=== PATIENT | male | born 1980 | race Caucasian/White ===

== ENCOUNTER 2017-11-25 11:27 | Emergency (ER) | payer BC, OTHER ==
[~2017-11-25] VITALS: Ht 177.8 cm; Wt 135.0 kg
[2017-11-25 11:30] VITALS: TEMP 36.8; Ht 177.8 cm; Wt 135.0 kg
[2017-11-25] MEDS ORDERED: SODIUM CHLORIDE 0.9% 1000ML 1,000 ML IV STA (11:54)
[2017-11-25] MEDS ORDERED: ACETAMINOPHEN IV 100 ML IV STA (11:54)
--- NOTE | 2017-11-25 12:05 | EMERGENCY ROOM VISIT NOTE ---
History First contact with patient: 11:40 Chief Complaint: FLANK PAIN Stated Complaint: LEFT ABDOMINAL AND GROIN PAIN, BACK PAIN, VOMITING History of Present Illness The patient is a 37 year old male who presents to the Emergency Room with complaints of left lower quadrant abdominal pain which began at approximately 730 or 8:00 this morning. He states at that time, the pain was more of a discomfort sensation. He states as the morning has gone on, the pain has radiated towards his left groin and around his back. He states he thought it was related to gas pain, however the symptoms continue to worsen. He is having difficulty sitting or lying still, and his pain improves when up walking around. He did try heating pad which was not helpful. He denies any urinary symptoms including hematuria or dysuria. He denies any urinary frequency or hesitancy. He denies any upper abdominal pain, chest pain, difficulty breathing. Of note, he is currently on Augmentin for bronchitis and pneumonia. He has been taking this medication for approximately the past 1 week. He did experience one episode of vomiting due to the pain this morning. He reports taking 600 mg ibuprofen approximately 1 hour ago which has significantly helped with the pain. The patient does not have history of kidney stones or other urological disorders. Review of Systems A complete 10 point review of systems was reviewed with the patient with pertinent positives and negatives as per history of present illness. All else were negative. Past Medical/Surgical History Medical Problems: (1) Dissecting aneurysm of cerebral artery (2) Stroke Social History Smoking Status: Never Smoker Marital Status: Housing Status: lives with family Occupation Status: employed Current/Historical Medications Scheduled Amoxicillin & Pot Clavulanate (Augmentin 875-125 mg), 1 TAB PO BID Physical Exam Vital Signs Date Time Temp Pulse Resp B/P (MAP) Pulse Ox O2 Delivery O2 Flow Rate FiO2 11/25/17 13:05 72 18 142/93 96 Room Air 11/25/17 11:30 36.8 88 20 185/108 94 Room Air Physical Exam VITALS: Vitals are noted on the nurse's note and reviewed by myself. Vital signs stable. GENERAL: This is a 37-year-old white male, in no acute distress, nondiaphoretic , well-developed well-nourished. SKIN: The skin was without rashes, erythema, edema, or bruising. There is no tenting of the skin. Capillary reflex less than 2 seconds. HEAD: Normocephalic atraumatic. EARS: External auditory canals clear, tympanic membranes pearly erickson without erythema or effusion bilaterally. EYES: Pupils equal round and reactive to light and accommodation. Conjunctivae without injection, sclerae without icterus. Extraocular movements intact. NOSE: Patent, turbinates without inflammation or discharge. No sinus tenderness. MOUTH: Mucous membranes moist. Tonsils are not enlarged. Pharynx without erythema or exudate. Uvula midline. Airway patent. Tongue does not deviate. NECK: Supple without nuchal rigidity. No lymphadenopathy. No thyromegaly. Cervical spine is nontender. No JVD. HEART: Regular rate and rhythm without murmurs gallops or rubs. LUNGS: Clear to auscultation bilaterally without wheezes, rales or rhonchi. No dullness to percussion. No retractions or accessory muscle use. ABDOMEN: Positive bowel sounds x 4. Normal tympanic percussion. Mild to moderate tenderness of the left pelvic region. The abdomen was otherwise soft, nontender, without masses or organomegaly. Baugh sign negative. No guarding or rebound tenderness. No CVA tenderness bilaterally. MUSCULOSKELETAL: No muscle atrophy, erythema, or edema noted. Full range of motion without joint tenderness in all extremities. No tenderness to palpation. Normal gait. Strength 5/5 throughout. NEURO: Patient was alert and oriented to person place and time. Normal sensation to light and sharp touch. Deep tendon reflexes 2+ throughout. No focal neurological deficits. Medical Decision & Procedures ER Provider Diagnostic Interpretation: KUB HISTORY: left flank pain COMPARISON: None. FINDINGS: The bowel gas pattern is unremarkable. There are no dilated loops of small bowel to suggest an obstruction. The majority of the scattered punctate calcifications within the abdomen do not appear to be related to the kidneys. However, there is a 6 mm calcification adjacent to the left L3 transverse process. This favors a proximal left ureteral stone. No definite renal calculi identified. Of note, the right renal shadow is mostly obscured by overlying bowel gas. No bladder calculi. No pneumoperitoneum or pneumatosis. IMPRESSION: A 6 mm calcification adjacent to the left L3 transverse process which likely represents a proximal left ureteral stone. Laboratory Results 11/25/17 11:50 Red Blood Count 4.86, Mean Corpuscular Volume 87.0, Mean Corpuscular Hemoglobin 32.5, Mean Corpuscular Hemoglobin Concent 37.4, Mean Platelet Volume 10.7, Neutrophils (%) (Auto) 70.4, Lymphocytes (%) (Auto) 19.8, Monocytes (%) (Auto) 8.2, Eosinophils (%) (Auto) 1.1, Basophils (%) (Auto) 0.2, Neutrophils # (Auto) 6.27, Lymphocytes # (Auto) 1.77, Monocytes # (Auto) 0.73, Eosinophils # (Auto) 0.10, Basophils # (Auto) 0.02 11/25/17 11:50 Test 11/25/17 11:50 White Blood Count 8.92 K/uL (4.8-10.8) Red Blood Count 4.86 M/uL (4.7-6.1) Hemoglobin 15.8 g/dL (14.0-18.0) Hematocrit 42.3 % (42-52) Mean Corpuscular Volume 87.0 fL (80-100) Mean Corpuscular Hemoglobin 32.5 pg (25-34) Mean Corpuscular Hemoglobin Concent 37.4 g/dl (32-36) Platelet Count 220 K/uL (130-400) Mean Platelet Volume 10.7 fL (7.4-10.4) Neutrophils (%) (Auto) 70.4 % Lymphocytes (%) (Auto) 19.8 % Monocytes (%) (Auto) 8.2 % Eosinophils (%) (Auto) 1.1 % Basophils (%) (Auto) 0.2 % Neutrophils # (Auto) 6.27 K/uL (1.4-6.5) Lymphocytes # (Auto) 1.77 K/uL (1.2-3.4) Monocytes # (Auto) 0.73 K/uL (0.11-0.59) Eosinophils # (Auto) 0.10 K/uL (0-0.5) Basophils # (Auto) 0.02 K/uL (0-0.2) RDW Standard Deviation 37.7 fL (36.4-46.3) RDW Coefficient of Variation 11.9 % (11.5-14.5) Immature Granulocyte % (Auto) 0.3 % Immature Granulocyte # (Auto) 0.03 K/uL (0.00-0.02) Urine Color YELLOW Urine Appearance CLOUDY (CLEAR) Urine pH 7.0 (4.5-7.5) Urine Specific [place] 1.023 (1.000-1.030) Urine Protein NEG (NEG) Urine Glucose (UA) NEG (NEG) Urine Ketones NEG (NEG) Urine Occult Blood 1+ (NEG) Urine Nitrite NEG (NEG) Urine Bilirubin NEG (NEG) Urine Urobilinogen NEG (NEG) Urine Leukocyte Esterase NEG (NEG) Urine WBC (Auto) 1-5 /hpf (0-5) Urine RBC (Auto) 5-10 /hpf (0-4) Urine Hyaline Casts (Auto) 0 /lpf (0-5) Urine Epithelial Cells (Auto) 0-5 /lpf (0-5) Urine Bacteria (Auto) NEG (NEG) Anion Gap 8.0 mmol/L (3-11) Est Creatinine Clear Calc Drug Dose 148.6 ml/min Estimated GFR () 118.2 Estimated GFR (Non- 102.0 BUN/Creatinine Ratio 16.8 (10-20) Calcium Level 9.0 mg/dl (8.5-10.1) Total Bilirubin 0.6 mg/dl (0.2-1) Aspartate Amino Transf (AST/SGOT) 21 U/L (15-37) Alanine Aminotransferase (ALT/SGPT) 40 U/L (12-78) Alkaline Phosphatase 93 U/L (45-117) Total Protein 8.0 gm/dl (6.4-8.2) Albumin 3.9 gm/dl (3.4-5.0) Globulin 4.1 gm/dl (2.5-4.0) Albumin/Globulin Ratio 1.0 (0.9-2) Medications Administered Medications (Trade) Dose Ordered Sig/Macho Route Start Time Stop Time Status Last Admin Dose Admin Sodium Chloride 1,000 ml @ 999 mls/hr Q1H1M STAT IV 11/25/17 11:54 11/25/17 12:54 DC 11/25/17 12:04 999 MLS/HR Acetaminophen 100 ml @ 400 mls/hr NOW STAT IV 11/25/17 11:54 11/25/17 12:08 DC 11/25/17 12:05 400 MLS/HR Ketorolac Tromethamine (Toradol Inj) 30 mg NOW STAT IV 11/25/17 12:47 11/25/17 12:51 DC 11/25/17 12:56 30 MG ED Course The patient was seen and evaluated as above. IV access obtained, labs drawn. The patient was given 1G IV acetaminophen. He was given 1 L normal saline solution IV. KUB reviewed by myself and radiologist. Labs reviewed. I discussed all findings with the patient and his at bedside. The patient was given 30mg Toradol IV. Discharge instructions reviewed. The patient was discharged home in good condition. Medical Decision This patient is a 37-year-old white male who presents to the emergency department today complaining of left lower quadrant abdominal pain radiating into the left groin. The pain has not moved, and he does not have a history of kidney stones, however the pain is colicky in nature, and he feels better with movement and worse at rest. His urinalysis was positive for blood and red blood cells, with no indication for infection. CBC is without leukocytosis, anemia, thrombocytopenia. CMP showed normal renal and hepatic function. Normal electrolytes. KUB was positive for 6 mm stone in the area of the left ureter. I do feel that this is the cause of patient's pain, and discussed with him and his that it should pass, however may not. The patient will be started on Flomax, pain medication, and will be given instructions for follow- up with urology. The patient and his were agreeable to this plan. They did request p.o. Toradol to be taken at home. I discussed with them that the patient cannot take more than 5 days worth of Toradol at this time. I also discussed instructions to avoid any other NSAIDs while taking this medication. Etiologies such as renal colic, appendicitis, diverticulitis, mesenteric ischemia, aortic pathology, infections, inflammatory bowel disease, PUD, biliary pathology, UTI, as well as others were entertained. [place] Drug Monitoring [place] Search Results: patient reviewed within database, no issues identified Medication Reconcilliation Current Medication List: was personally reviewed by me Blood Pressure Screening Patient's blood pressure: Normal blood pressure Impression Primary Impression: Ureteral calculus Departure Information Dispostion Home / Self-Care Condition GOOD Referrals Gildardo Rodriguez M.D. (PCP) David Simpson M.D. Patient Instructions ED Stone Renal W Col[facility], [facility] Additional Instructions You have been treated in the Emergency Department today for a Kidney Stone ( Nephrolithiasis). You have been prescribed OxyIR to be used for pain control. This is a narcotic medication. You cannot drive or consume alcohol while on this medicine. This medicine should only be used for pain that cannot be controlled with over-the- counter pain medicines. You have been prescribed Zofran to be used for any nausea or vomiting. Take as prescribed. You have been prescribed Flomax 0.4 mg to be taken ONCE daily. This medicine has been prescribed as it can help relax the smooth muscles of the urinary tract increasing transit time of the kidney stone. You have been prescribed Toradol to be taken for NO MORE than 5 days. Take this medication as prescribed. Do not take any other NSAID medication (Advil, Motrin , Aleve, ibuprofen, naproxen) while taking this medication. You MAY take Tylenol for pain while on Toradol. For pain control, you can use the following [id number] medicines (if >12 yo): Ibuprofen(Motrin, Advil) may be used for fever or pain. Use 600mg every six hours as needed. Take with food. Avoid using more than 2400mg in a 24 hour period. Do not use 2400mg per day for more than three consecutive days without physician direction. Prolonged inappropriate use can lead to stomach upset or ulcers. ONLY TAKE THIS MEDICATION IF YOU ARE NOT TAKING TORADOL. (AND/OR) Acetaminophen(Tylenol) may be used for fever or pain. Use 1000mg every six hours as needed. Avoid using more than 3000mg in a 24 hour period. You have been provided a strainer and specimen collection cup. You should strain your urine to collect any passed stones. Your stones can be placed into the specimen cup and taken to your Urologist for further evaluation. You have been provided the contact information for the on-call Urologist. You should contact the Urologist's office tomorrow to establish a follow-up appointment from today's Emergency Department visit. Return to the Emergency Department if your symptoms persist despite the treatment plan outlined above or if you develop the following symptoms: intractable pain, fever, chills, or large amounts of blood in your urine.
[2017-11-25 12:21] LABS: BASO % 0.2 %; BASO ABS # 0.02 K/uL (0-0.2); EOS % 1.1 %; HEMATOCRIT 42.3 % (42-52); HEMOGLOBIN 15.8 g/dL (14.0-18.0); IG# 0.03 K/uL (0.00-0.02); LYMPH % 19.8 %; LYMPH ABS # 1.77 K/uL (1.2-3.4); MEAN CORPUSCULAR HEMOGLOBIN 32.5 pg (25-34); MEAN CORPUSCULAR HGB CONC 37.4 g/dl (32-36); MEAN PLATELET VOLUME 10.7 fL (7.4-10.4); MONO % 8.2 %; MONO ABS # 0.73 K/uL (0.11-0.59); NEUT % 70.4 %; NEUT ABS # 6.27 K/uL (1.4-6.5); PLATELET COUNT 220 K/uL (130-400); RED CELL DISTRIBUTION WIDTH CV 11.9 % (11.5-14.5); RED CELL DISTRIBUTION WIDTH SD 37.7 fL (36.4-46.3); WHITE BLOOD COUNT 8.92 K/uL (4.8-10.8)
--- NOTE | 2017-11-25 12:36 | DIAGNOSTIC IMAGING REPORT ---
KUB HISTORY: left flank pain COMPARISON: None. FINDINGS: The bowel gas pattern is unremarkable. There are no dilated loops of small bowel to suggest an obstruction. The majority of the scattered punctate calcifications within the abdomen do not appear to be related to the kidneys. However, there is a 6 mm calcification adjacent to the left L3 transverse process. This favors a proximal left ureteral stone. No definite renal calculi identified. Of note, the right renal shadow is mostly obscured by overlying bowel gas. No bladder calculi. No pneumoperitoneum or pneumatosis. IMPRESSION: A 6 mm calcification adjacent to the left L3 transverse process which likely represents a proximal left ureteral stone. Electronically signed by: Clovis Rosenthal M.D. 11/25/2017 12:35 PM Dictated Date/Time: 11/25/2017 12:28 PM
[2017-11-25 12:46] LABS: ALBUMIN 3.9 gm/dl (3.4-5.0); CREATININE 0.96 mg/dl (0.60-1.40); POTASSIUM 3.9 mmol/L (3.5-5.1)
[2017-11-25] MEDS ORDERED: KETOROLAC TROMETHAMINE 30 MG/ML VIAL IV STA (12:47)
[2017-11-25] MEDS ORDERED: ONDA4TAB10 SL (12:54)
[2017-11-25] MEDS ORDERED: TAMS0.4C38 PO (12:54)
[2017-11-25] MEDS ORDERED: KETO10TA PO (12:54)
[2017-11-25] MEDS ORDERED: OXYC1TAB3 PO (12:54)
[2017-11-25] MEDS ORDERED: AMOX875T PO (12:59)
[2017-11-25 13:05] VITALS: BP 142/93; PULSE 72; O2SAT 96
== END 2017-11-25 13:15 | disposition home or self-care (01) ==
LOC: C.EDB 11:28 → C.EDA 13:15
DX: R10.32 Left lower quadrant pain (principal); N20.1 Calculus of ureter; Z86.73 Personal history of transient ischemic attack (TIA), and cerebral infarction without residual deficits

== ENCOUNTER → 2017-12-01 | Outpatient (CLI) | payer OTHER ==
[~2017-12-01] MED LIST: AMOX875T PO; OXYC1TAB3 PO; TAMS0.4C38 PO
--- NOTE | 2017-12-01 15:37 | DIAGNOSTIC IMAGING REPORT ---
TWO VIEW CHEST CLINICAL HISTORY: Preoperative examination. Ureteral stone. FINDINGS: PA and lateral chest radiographs are compared to study dated 09/15/2015. The cardiomediastinal silhouette is unremarkable. The lungs and pleural spaces are clear. There is no pneumothorax. The bony thorax appears intact. IMPRESSION: No active disease in the chest. Electronically signed by: Chris Jensen M.D. 12/01/2017 3:36 PM Dictated Date/Time: 12/01/2017 3:35 PM
== END ==
LOC: C.LAB 15:02
PROVIDERS: ATTEND Nurse Practitioner Adult Health
DX: N20.1 Calculus of ureter (principal)

== ENCOUNTER → 2017-12-12 | Day surgery (SDC) | payer OTHER ==
[2017-12-03 13:41] VITALS: Ht 177.8 cm; Wt 135.4 kg
--- NOTE | 2017-12-09 13:43 | PAT Medication Instructions ---
Service Date Dec 09, 2017. Current Home Medication List Oxycodone Ir (Roxicodone Ir), 1 TAB PO Q4H PRN for Severe Pain Tamsulosin Hcl (Flomax), 0.4 MG PO HS Medication Instructions For Your Scheduled Surgery - Take the following medications the morning of surgery with a sip of water: Oxycodone Ir (Roxicodone Ir), 1 TAB PO Q4H PRN for Severe Pain (if needed, can be taken up to four hours before surgery) - Take the following medications as scheduled the night before surgery: Oxycodone Ir (Roxicodone Ir), 1 TAB PO Q4H PRN for Severe Pain Tamsulosin Hcl (Flomax), 0.4 MG PO HS If you have any questions please call us at [phone] or [phone] or [phone]
[2017-12-09 16:44] LABS: BASO % 0.3 %; BASO ABS # 0.02 K/uL (0-0.2); EOS % 1.9 %; EOS ABS # 0.12 K/uL (0-0.5); HEMATOCRIT 38.6 % (42-52); HEMOGLOBIN 14.2 g/dL (14.0-18.0); IG# 0.01 K/uL (0.00-0.02); LYMPH % 37.4 %; LYMPH ABS # 2.35 K/uL (1.2-3.4); MEAN CELL VOLUME 87.5 fL (80-100); MEAN CORPUSCULAR HEMOGLOBIN 32.2 pg (25-34); MEAN CORPUSCULAR HGB CONC 36.8 g/dl (32-36); MONO % 7.6 %; MONO ABS # 0.48 K/uL (0.11-0.59); NEUT % 52.6 %; PLATELET COUNT 251 K/uL (130-400); RED CELL DISTRIBUTION WIDTH SD 38.5 fL (36.4-46.3); WHITE BLOOD COUNT 6.28 K/uL (4.8-10.8)
[2017-12-09 16:51] LABS: CREATININE 0.78 mg/dl (0.60-1.40); POTASSIUM 4.1 mmol/L (3.5-5.1)
--- NOTE | 2017-12-11 17:19 | DIAGNOSTIC IMAGING REPORT ---
KUB CLINICAL HISTORY: N20.1 Ureteral calculus, left COMPARISON STUDY: 11/25/2017 FINDINGS: There is no pathologic bowel dilatation. There is a 7.5 mm calcification at the L3 level, consistent with a proximal left ureteral calculus IMPRESSION: No change the position of the 7.5 mm calcification at the L3 level on the left. This is viewed as suspicious for a proximal left ureteral calculus Electronically signed by: Melchor Bess M.D. 12/11/2017 5:18 PM Dictated Date/Time: 12/11/2017 5:17 PM
[~2017-12-12] VITALS: Ht 177.8 cm; Wt 135.4 kg
[~2017-12-12] MED LIST changes: -AMOX875T PO; +ATROPINE SULFATE 0.1 MG/ML 5ML SYR IV PRN; +CIPROFLOXACIN 400MG / D5W IV SCH; +EpHEDrine SULFATE INJ 50 MG/ML AMP IV PRN; +FENTANYL CITRATE INJ 50 MCG/1 ML 2 ML VIAL IV PRN; +FENTANYL CITRATE INJ 50 MCG/1 ML 2 ML VIAL ONE; +HYDROmorphone INJ 1 MG/ML SYR IV PRN; +LACTATED RINGER'S 1000ML 1,000 ML IV SCH; +LIDOCAINE HCL 2% 2 ML VIAL (20MG/ML) ONE; +MIDAZOLAM HCL 1 MG/ML 2ML VIAL ONE; +ONDANSETRON INJ 2 MG/ML 2 ML VIAL IV PRN; +OXYC-57 PO; +OXYCODONE/ACETAMINOPHEN 5-325 TAB PO PRN; +PROPOFOL IV EMULSION 10 MG/ML 20 ML VIAL IV ONE
--- NOTE | 2017-12-12 08:10 | History & Physical Bridge Note ---
H&P Re-Evaluation Bridge Note: I have examined the patient, reviewed the History & Physical and in the interval since the performance of the History & Physical I have noted the following changes of clinical significance: No changes noted
--- NOTE | 2017-12-12 09:01 | Discharge Instructions-SurgCtr ---
Discharge Instructions Date of Service Dec 12, 2017. Visit Reason for Visit: Ureteral Calculus Discharge Discharge Diagnosis / Problem: Stone Discharge Goals Goal(s): Therapeutic intervention Activity Recommendations Activity Limitations: per Instructions/Follow-up section Exercise/Sports Limitations: rest today May Resume Sexual Activity: when tolerated Shower/Bathe: no limitations Driving or Machine Use: resume 1 day after discharge Anesthesia . Post Anesthesia Instructions: If you have had General Anesthesia or IV Sedation: * Do not drive today. * Resume driving when surgeon permits. * Do not make important decisions or sign legal documents today. * Call surgeon for: 1. Temperature elevations greater than 101 degrees F. 2. Uncontrollable pain. 3. Excessive bleeding. 4. Persistent nausea and vomiting. 5. Medication intolerance (nausea, vomiting or rash). * For nausea and vomiting use only clear liquids such as: tea, soda, bouillon until nausea subsides, then gradually increase diet as tolerated. * If you have any concerns or questions, call your surgeon's office. If physician is unavailable and it is an emergency, call 911 or go to the nearest emergency room. . Instructions / Follow-Up Instructions / Follow-Up MEDICATIONS: Resume previous medications unless instructed otherwise by your surgeon. Resume pre-ES[facility] medication except for aspirin, coumadin or other blood thinners. __ Toradol 10 mg every 6 hours for initial pain. __ Lortab 5 mg 1-2 every 4 hours for pain. _x_ Percocet 5 mg 1-2 every 4 hours for pain. __ Macrodantin 50 mg x 3 a day. __ Flomax 1 tab daily one half (1/2) hour after supper. SPECIAL CARE INSTRUCTIONS: 1. Get KUB (x-ray) _x_ day before or day of office visit and bring x-ray to office __ get x-ray 2 days before and tell office you are getting x-rays when you call for the appointment. 2. Strain ALL urine. 3. Please call if you have a fever, chills, severe pain, or constant dribbling of urine. 4. Office phone number . FOLLOW UP VISIT: Please call the office to schedule a follow-up appointment at . Diet Recommendations Home Diet: resume previous diet Procedures Procedures Performed: Left Extracorporeal Shock Wave Lithotripsy Pending Studies Studies pending at discharge: no Medical Emergencies . Who to Call and When: Medical Emergencies: If at any time you feel your situation is an emergency, please call 911 immediately. . Non-Emergent Contact Non-Emergency issues call your: Urologist Call Non-Emergent contact if: temperature is above 101.5, your pain is not controlled . . "Provider Documentation" section prepared by Isrrael Acevedo. . [place] Drug Monitoring Program Search Results: patient reviewed within database
--- NOTE | 2017-12-12 09:03 | [facility] Operative Report ---
Operative Report Operative Date Dec 12, 2017. Pre-Operative Diagnosis Left Ureteral Stone Post-Operative Diagnosis same Procedure(s) Performed Left Extracorporeal Shock Wave Lithotripsy Surgeon Dr. Isatu Acevedo Rn Research Surgeon(s) 0 Estimated Blood Loss 0 Findings Left UPJ stone Specimens none Drains None Anesthesia Type General Complication(s) none Disposition yes Recovery Room / PACU Indications Left ureteral stone Description of Procedure Patient was identified in the preoperative holding area, appropriate informed consent was reviewed and completed and the patient was transported to the operating suite. Upon arrival appropriate preoperative antibiotics were administered and general anesthesia induced. The patient was placed in supine position and the stone was localized under fluoroscopy. A total of [_2500__] shocks were delivered to the stone. There appeared to be good fragmentation of the stone. Details of this procedure can be found on the [facility] information sheet. At the conclusion of the case the patient was extubated and taken to the PACU in stable condition. There were no complications. I attest to the content of the Intraoperative Record and any orders documented therein. Any exceptions are noted below.
--- NOTE | 2017-12-12 09:58 | Anesthesia Progress Nt - [facility] ---
Anesthesia Post Op Note Date & Time Dec 12, 2017 at 09:58 Vital Signs Pain Intensity: 0 Vital Signs Past 12 Hours Date Time Temp Pulse Resp B/P (MAP) Pulse Ox O2 Delivery O2 Flow Rate FiO2 12/12/17 09:52 78 18 99 12/12/17 09:52 77 18 12/12/17 09:51 150/97 12/12/17 09:50 36.7 73 15 150/97 99 Room Air 12/12/17 09:48 153/99 12/12/17 09:47 76 22 12/12/17 09:47 76 22 99 12/12/17 09:46 147/101 12/12/17 09:42 66 13 100 12/12/17 09:42 65 13 12/12/17 09:41 150/92 12/12/17 09:37 69 11 100 12/12/17 09:37 69 11 12/12/17 09:36 145/90 12/12/17 09:32 68 12 12/12/17 09:32 67 12 99 12/12/17 09:31 70 12 12/12/17 09:31 70 12 138/82 99 12/12/17 09:26 70 11 12/12/17 09:26 70 11 138/92 99 12/12/17 09:22 143/91 12/12/17 09:21 36.5 77 12 143/91 99 Mask 6 12/12/17 07:18 37.0 73 20 132/86 (101) 97 Room Air Notes Mental Status: alert / awake / arousable, participated in evaluation Pt Amnestic to Procedure: Yes Nausea / Vomiting: adequately controlled Pain: adequately controlled Airway Patency, RR, SpO2: stable & adequate BP & HR: stable & adequate Hydration State: stable & adequate Anesthetic Complications: no major complications apparent
[2017-12-12 10:27] VITALS: BP 147/93; PULSE 64; O2SAT 100
== END | disposition home or self-care (01) ==
LOC: X.SURG 07:03
PROVIDERS: ATTEND Urology
DX: N20.0 Calculus of kidney (principal); E66.9 Obesity, unspecified; Z86.73 Personal history of transient ischemic attack (TIA), and cerebral infarction without residual deficits

== ENCOUNTER → 2017-12-22 | Outpatient (CLI) | payer OTHER ==
[~2017-12-22] MED LIST changes: -ATROPINE SULFATE 0.1 MG/ML 5ML SYR IV PRN; -CIPROFLOXACIN 400MG / D5W IV SCH; -EpHEDrine SULFATE INJ 50 MG/ML AMP IV PRN; -FENTANYL CITRATE INJ 50 MCG/1 ML 2 ML VIAL IV PRN; -FENTANYL CITRATE INJ 50 MCG/1 ML 2 ML VIAL ONE; -HYDROmorphone INJ 1 MG/ML SYR IV PRN; +IBUP-1050 PO; -LACTATED RINGER'S 1000ML 1,000 ML IV SCH; -LIDOCAINE HCL 2% 2 ML VIAL (20MG/ML) ONE; -MIDAZOLAM HCL 1 MG/ML 2ML VIAL ONE; -ONDANSETRON INJ 2 MG/ML 2 ML VIAL IV PRN; -OXYCODONE/ACETAMINOPHEN 5-325 TAB PO PRN; -PROPOFOL IV EMULSION 10 MG/ML 20 ML VIAL IV ONE
--- NOTE | 2017-12-22 08:41 | DIAGNOSTIC IMAGING REPORT ---
KUB CLINICAL HISTORY: N20.1 Ureteral calculus, [id number] nephrocalcinosis COMPARISON STUDY: 12/12/2007 FINDINGS: 7 mm proximal left ureteral calculus essentially unchanged from the prior study. Levels medially superior to the level of the left transverse process of L3. Possible minimal distal migration of 1 cm No additional calcifications. Nonobstructive bowel pattern. IMPRESSION: 7 mm proximal left ureteral calculus essentially unchanged from the prior exam. Possibility of a minimal 1 cm distal migration may be entertained. The above report was generated using voice recognition software. It may contain grammatical, syntax or spelling errors. Electronically signed by: Gildardo Martinez M.D. 12/22/2017 8:40 AM Dictated Date/Time: 12/22/2017 8:38 AM
== END | disposition home or self-care (01) ==
LOC: C.RAD 08:19
PROVIDERS: ATTEND Nurse Practitioner Adult Health
DX: N20.1 Calculus of ureter (principal)

== ENCOUNTER → 2017-12-23 | Outpatient (CLI) | payer OTHER ==
[2017-12-23 12:11] LABS: BASO % 0.5 %; BASO ABS # 0.03 K/uL (0-0.2); EOS % 1.7 %; HEMATOCRIT 39.8 % (42-52); HEMOGLOBIN 14.6 g/dL (14.0-18.0); IG# 0.02 K/uL (0.00-0.02); LYMPH % 38.2 %; LYMPH ABS # 2.19 K/uL (1.2-3.4); MEAN CELL VOLUME 88.6 fL (80-100); MEAN CORPUSCULAR HEMOGLOBIN 32.5 pg (25-34); MEAN CORPUSCULAR HGB CONC 36.7 g/dl (32-36); MEAN PLATELET VOLUME 10.8 fL (7.4-10.4); MONO % 9.9 %; MONO ABS # 0.57 K/uL (0.11-0.59); NEUT % 49.4 %; NEUT ABS # 2.83 K/uL (1.4-6.5); PLATELET COUNT 220 K/uL (130-400); RED CELL DISTRIBUTION WIDTH CV 12.5 % (11.5-14.5); RED CELL DISTRIBUTION WIDTH SD 40.2 fL (36.4-46.3); WHITE BLOOD COUNT 5.74 K/uL (4.8-10.8)
[2017-12-23 12:20] LABS: BLOOD UREA NITROGEN 13 mg/dl (7-18); CALCIUM 8.8 mg/dl (8.5-10.1); CARBON DIOXIDE 27 mmol/L (21-32); CREATININE 0.84 mg/dl (0.60-1.40); GLUCOSE 82 mg/dl (70-99); POTASSIUM 4.2 mmol/L (3.5-5.1); SODIUM 139 mmol/L (136-145)
== END | disposition home or self-care (01) ==
LOC: C.LAB 11:03
PROVIDERS: ATTEND Urology
DX: N20.1 Calculus of ureter (principal)

== ENCOUNTER → 2017-12-29 | Day surgery (SDC) | payer OTHER ==
[2017-12-25 15:17] VITALS: Ht 177.8 cm; Wt 135.4 kg
[~2017-12-29] VITALS: Ht 177.8 cm; Wt 135.4 kg
[~2017-12-29] MED LIST changes: +ATROPINE SULFATE 0.1 MG/ML 5ML SYR IV PRN; +CIPROFLOXACIN / D5W 400 MG IV SCH; +Cysto-Conray II 17.2% 250ML BOTTLE ONE; +DEXAMETHASONE SOD INJ 4 MG/ML VIAL ONE; +EpHEDrine SULFATE 50MG/5ML SYR ONE; +FENTANYL CITRATE INJ 50 MCG/1 ML 2 ML VIAL IV PRN; +FENTANYL CITRATE INJ 50 MCG/1 ML 2 ML VIAL ONE; +KETOROLAC TROMETHAMINE 30 MG/ML VIAL IV. PRN; +KETOROLAC TROMETHAMINE 30 MG/ML VIAL ONE; +LACTATED RINGER'S 1000ML 1,000 ML IV SCH; +LIDOCAINE HCL 2% 2 ML VIAL (20MG/ML) ONE; +MIDAZOLAM HCL 1 MG/ML 2ML VIAL ONE; +NURSING VERBAL MED ORDER ONE; +ONDANSETRON INJ 2 MG/ML 2 ML VIAL IV PRN; +ONDANSETRON INJ 2 MG/ML 2 ML VIAL ONE; +OXYCODONE/ACETAMINOPHEN 5-325 TAB PO PRN; +PROPOFOL IV EMULSION 10 MG/ML 20 ML VIAL IV ONE
[2017-12-29 07:36] VITALS: BP 147/82; PULSE 70; TEMP 36.9; O2SAT 98
--- NOTE | 2017-12-29 08:16 | [facility] Post Operative Brief Note ---
Immediate Operative Summary Operative Date Dec 29, 2017.
--- NOTE | 2017-12-29 09:37 | [facility] Post Operative Brief Note ---
Immediate Operative Summary Operative Date Dec 29, 2017. Pre-Operative Diagnosis Left Kidney Stone Post-Operative Diagnosis Left Kidney Stone Procedure(s) Performed Cystoscopy, Left Ureteroscopy, Laser Lithotripsy; Left Stent Insertion Surgeon Dr. Acevedo Sports Trainer Surgeon(s) Dr Kemp Estimated Blood Loss none Findings Consistent with Post-Op Diagnosis Specimens None per Surgeon Drains 6f left stent Anesthesia Type General Complication(s) none Disposition Disposition: Recovery Room / PACU
--- NOTE | 2017-12-29 09:39 | Discharge Instructions ---
Discharge Instructions Date of Service Dec 29, 2017. Visit Reason for Visit: Left Ureteral Stone Discharge Discharge Diagnosis / Problem: left ureteral stone Discharge Goals Goal(s): Therapeutic intervention Activity Recommendations Activity Limitations: per Instructions/Follow-up section Exercise/Sports Limitations: rest today May Resume Sexual Activity: when tolerated Shower/Bathe: no limitations Driving or Machine Use: resume 1 day after discharge Anesthesia . Post Anesthesia Instructions: If you have had General Anesthesia or IV Sedation: * Do not drive today. * Resume driving when surgeon permits. * Do not make important decisions or sign legal documents today. * Call surgeon for: 1. Temperature elevations greater than 101 degrees F. 2. Uncontrollable pain. 3. Excessive bleeding. 4. Persistent nausea and vomiting. 5. Medication intolerance (nausea, vomiting or rash). * For nausea and vomiting use only clear liquids such as: tea, soda, bouillon until nausea subsides, then gradually increase diet as tolerated. * If you have any concerns or questions, call your surgeon's office. If physician is unavailable and it is an emergency, call 911 or go to the nearest emergency room. . Diet Recommendations Recommended Home Diet: resume previous diet Procedures Procedures Performed: Cystoscopy, Left Ureteroscopy, Laser Lithotripsy; Left Stent Insertion Pending Studies Studies pending at discharge: no Medical Emergencies . Who to Call and When: Medical Emergencies: If at any time you feel your situation is an emergency, please call 911 immediately. . Non-Emergent Contact Non-Emergency issues call your: Urologist Call Non-Emergent contact if: temperature is above 101.5, your pain is not controlled . . "Provider Documentation" section prepared by Isrrael Acevedo. . [place] Drug Monitoring [place] Search Results: patient reviewed within database
--- NOTE | 2017-12-29 10:05 | [facility] Operative Report ---
Operative Report Operative Date Dec 29, 2017. Pre-Operative Diagnosis Left Kidney Stone Post-Operative Diagnosis Left Kidney Stone Procedure(s) Performed Cystoscopy, Left Ureteroscopy, Laser Lithotripsy; Left Stent Insertion Surgeon Dr. Acevedo [employer] Manager Surgeon(s) Dr Kemp Estimated Blood Loss none Findings Cystoscopic exam revealed a normal anterior urethra. Prostatic fossa was nonobstructing. Bladder showed no mucosal abnormalities. Left retrograde showed a stone at the ureteropelvic junction. Specimens None per Surgeon Drains None 6f left stent Anesthesia Type General Complication(s) none Disposition yes Recovery Room / PACU Indications Patient's a 37-year-old white male with a left proximal ureteral calculus who failed extracorporeal shockwave lithotripsy is being brought in now for ureteroscopy laser lithotripsy and stent. Description of Procedure After the induction of an adequate general anesthetic and appropriate timeout patient was placed in the dorsolithotomy position. Lower abdomen and genitalia were prepped with Hibiclens draped in a sterile fashion. Next using a 22 [place] cystoscope routine cystoscopic exam was performed with the above-noted findings with the 30 and 70 lenses. Next using a dual lumen catheter left retrograde pyelogram was performed with the above-noted findings next a 0.038 guidewire was passed up the left ureter under fluoroscopic guidance to position in the renal pelvis confirmed by fluoroscopy. The 10 [place] dual-lumen catheter was then used to dilate the intramural tunnel. And a second wire was then passed through this catheter. Ureteral access sheath was then passed over the guidewire and 1 of the guidewires was removed. Using a flexible ureteroscope ureteroscopy was done to the level of the stone. Then using a holmium laser stone was fragmented into multiple small pieces. After completing the fragmentation ureteroscope was removed to allow access sheath was removed the dual-lumen catheter was then passed again over the wire and a retrograde was performed. The dual-lumen catheter was removed and a 6 [place] Multilength stent was passed over the guidewire under fluoroscopic guidance to position the renal pelvis. Guidewire was removed there was good control with bladder level. Patient's bladder was then drained cystoscope and sheath removed all needle sponge and some counts were correct at the end of the case. Patient tolerated the procedure well and was taken to recovery in stable condition. I attest to the content of the Intraoperative Record and any orders documented therein. Any exceptions are noted below.
[2017-12-29 10:25] VITALS: BP 156/90; PULSE 71; TEMP 36.7; O2SAT 96
--- NOTE | 2017-12-29 10:36 | DIAGNOSTIC IMAGING REPORT ---
RETROGRADE INCLUDES KUB HISTORY: CYSTOSCOPY, URETEROSCOPY, LASER LITHO, LEFT STENT FLUOROSCOPY TIME: 1 minute and 24 seconds. FINDINGS: 4 fluoroscopic spot images were submitted for review. Initial images demonstrate a catheter within the left renal collecting system placed in a retrograde fashion with injection of contrast. This is followed by placement of a left ureteral stent which appears to be in good position. IMPRESSION: Fluoroscopy provided for left ureteral stent placement which appears in good position. Electronically signed by: Clovis Rosenthal M.D. 12/29/2017 10:35 AM Dictated Date/Time: 12/29/2017 10:34 AM
[2017-12-29 10:54] VITALS: BP 166/97; PULSE 63; O2SAT 97
[2017-12-29 11:25] VITALS: BP 163/97; PULSE 62; TEMP 36.7; O2SAT 97
--- NOTE | 2017-12-29 11:44 | Anesthesiology Progress Note ---
Anesthesia Post Op Note Date & Time Dec 29, 2017 at 11:44 Vital Signs Vital Signs Past 12 Hours Date Time Temp Pulse Resp B/P (MAP) Pulse Ox O2 Delivery O2 Flow Rate FiO2 12/29/17 11:25 36.7 62 18 163/97 97 Room Air 12/29/17 10:54 63 18 166/97 97 Room Air 12/29/17 10:25 36.7 71 18 156/90 96 Room Air 12/29/17 10:15 36.8 63 14 147/95 97 Room Air 12/29/17 10:05 66 14 155/93 98 Room Air 12/29/17 09:55 69 14 157/98 100 Oxymask 10 12/29/17 09:45 74 14 149/97 97 Oxymask 10 12/29/17 09:36 36.2 80 14 143/92 98 Oxymask 10 12/29/17 07:36 36.9 70 18 147/82 (103) 98 Room Air Notes Mental Status: alert / awake / arousable, participated in evaluation Pt Amnestic to Procedure: Yes Nausea / Vomiting: adequately controlled Pain: adequately controlled Airway Patency, RR, SpO2: stable & adequate BP & HR: stable & adequate Hydration State: stable & adequate Anesthetic Complications: no major complications apparent
[2017-12-29 11:55] VITALS: BP 166/62; PULSE 67; TEMP 36.7; O2SAT 97
[2017-12-29 14:00] VITALS: BP 158/72; PULSE 66; TEMP 36.7; O2SAT 98
== END | disposition home or self-care (01) ==
LOC: C.ACU 06:55
PROVIDERS: ATTEND Urology
DX: N20.1 Calculus of ureter (principal); Z87.01 Personal history of pneumonia (recurrent); Z86.73 Personal history of transient ischemic attack (TIA), and cerebral infarction without residual deficits; Z82.49 Family history of ischemic heart disease and other diseases of the circulatory system; Z98.890 Other specified postprocedural states; Z68.41 Body mass index [BMI] 40.0-44.9, adult